=== PATIENT | male | born 1970 | race Caucasian/White ===

== ENCOUNTER → 2016-07-28 | Outpatient (CLI) | payer OTHER ==
--- NOTE | 2016-07-28 14:18 | CR ---
EXAMINATION: Lumbar spine HISTORY: Low back pain COMPARISON: None TECHNIQUE: AP, lateral, flexion and extension images. FINDINGS: The lumbar spinal alignment is normal. The vertebral body heights and disc spaces appear w ell-maintained. There is no fracture or dislocation. Bone mineralization is normal. Minimal marginal osteophytes are noted. The SI joints are symmetric. Position and alignment appear unchanged with fl exion and extension. IMPRESSION: Grossly unremarkable lumbar spine.
== END ==
LOC: MW.CHPM 09:23
PROVIDERS: ATTEND Anesthesiology
DX: M54.5 Low back pain (principal)
CPT/HCPCS: 72110; 72110-26

== ENCOUNTER → 2016-08-25 | Outpatient (CLI) | payer OTHER ==
--- NOTE | 2016-08-28 13:58 | MR ---
EXAM DATE: 08/25/16 PATIENT'S AGE: 45 Patient: ALYSE RIZVI Facility: [place], [place] Site . Site : 1970 Study: MRI Spine Thoracic [id number] 6:57:30 PM Ordering Physician: Una Thakkar Final Report: INDICATION: 45-year-old male. Dorsalgia. Patient describes thoracolumbar pain with bilateral gluteal and posterior right thigh radiation. Technique: T1-T2 and STIR sagittal images with multilevel T2 axial acquisitions. Findings: Mild thoracolumbar scoliosis is convex to the left. There is a benign vertebral body hemangioma at T4. There is no pathologic signal within the spinal cord. C6-7 and C7-T1: Mild spondylosis. No significant central or foraminal stenosis. T1-2: Right central disc osteophyte complex contacts the spinal cord. No significant foraminal narrowing. T T3: Small Schmorl nodes. Minor annular bulge and marginal spurring. No significant central or foraminal. T3-4: Left central disc osteophyte complex indents the spinal cord. Foramina are normally patent. T4-5: Schmorl is nodes and minor annular bulge. No significant central or foraminal narrowing. T5-6: Schmorl nodes. Right central disc osteophyte complex contacts the spinal cord. No significant foraminal narrowing. T6-7: Schmorl is nodes and minor right central marginal disc osteophyte complex without impingement. T7-8: Schmorl is nodes. No significant central or foraminal narrowing. T8-9: Schmorl is nodes. No significant central or foraminal narrowing. T9-10: Schmorl is nodes. Mild right foramina narrowing by uncinate spurring. Central canal left neural foramina adequate patent. T9-10 T10-11, T11-12 and T12-L1: Schmorl nodes. No central or foraminal stenosis. Impression: 1. Multilevel Schmorl nodes and disc spondylosis detailed above without significant foramina. 2. Left central disc osteophyte complex at T3-4 indents the spinal cord. 3. Right central disc osteophyte complex at T5-6 contacts the anterior rootlets and spinal cord without spinal cord impingement. 4. Posterior marginal disc osteophyte complex at other segments detailed above without significant central or foraminal. Dictated by Chadd Mcnamara MD @ Aug 26 2016 12:44PM (Electronic Signature) Report Signed by Proxy. EMMIE
== END ==
LOC: MW.MRI 17:59
PROVIDERS: ATTEND Anesthesiology
DX: M54.9 Dorsalgia, unspecified (principal)
CPT/HCPCS: 72146; 72146-26

== ENCOUNTER 2020-09-03 10:08 | Emergency (ER) | payer OTHER ==
--- NOTE | 2020-09-03 10:46 | EDM.PDOC ---
ED HPI GENERAL MEDICAL PROBLEM - General Chief Complaint: General Stated Complaint: MEDICAL CLEARANCE Time Seen by Provider: 09/03/20 10:20 Source of Information: Reports: Patient History Limitations: Reports: No Limitations - History of Present Illness INITIAL COMMENTS - FREE TEXT/NARRATIVE: HISTORY AND PHYSICAL: History of present illness: Patient is a 49-year-old male who presents emergency room today in law enforcement custody for medical screening for incarceration. Patient states the only complaint he has is low back pain and states that he has a known diagnosis of chronic low back pain with bulging disks in the past. Patient states that he has been following with his primary care provider at the [facility] and last saw them yesterday. Patient states he has no other stated complaints at this time. Patient denies fever, chills, chest pain, shortness of breath, or cough. Denies headache, neck stiff ness, change in vision, syncope, or near syncope. Denies nausea, vomiting, abdominal pain, diarrhea, constipation, or dysuria. Has not noted any blood in urine or stool. Patient has been eating and drinking appropriately. Denies any loss or retention of bowel bladder function or saddle anesthesia. Review of systems: As per history of present illness and below otherwise all systems reviewed and negative. Past medical history: As per history of present illness and as reviewed below otherwise noncontributory. Surgical history: As per history of present illness and as reviewed below otherwise noncontributory. Social history: See social history for further information Family history: As per history of present illness and as reviewed below otherwise noncontributory. Physical exam: General: Patient is alert, oriented, and in no acute distress. Patient sitting comfortably on exam table. Patient's heart rate on triage was noted to be mildly tachycardic of 103 by nursing staff, however, on my exam, his heart rate is 95 bpm. Otherwise vital stable and reviewed by me. HEENT: Atraumatic, normocephalic, pupils equal and reactive bilaterally, negative for conjunctival pallor or scleral icterus, mucous membranes moist, TMs normal bilaterally, throat clear, neck supple, nontender, trachea midline. No drooling or trismus noted. No meningeal signs. No hot potato voice noted. Lungs: Clear to auscultation, breath sounds equal bilaterally, chest nontender. Heart: S1S2, regular rate and rhythm without overt murmur Abdomen: Soft, nondistended, nontender. Negative for masses or hepatosplenomegaly. Negative for costovertebral tenderness. Pelvis: Stable nontender. Genitourinary: Deferred. Rectal: Deferred. Skin: Intact, warm, dry. No lesions or rashes noted. Extremities: No obvious deformity of the complete spine. No step-offs, crepitus, or point tenderness to palpation of the complete spine. Patient does have full range of motion of the complete spine but does have pain with range of motion of the generalized lumbar spine. Patient was able to ambulate in the ED today without difficulty. Heel/toe gait intact. Patellar reflexes intact bilaterally. Straight leg raise intact bilaterally. Otherwise, atraumatic, negative for cords or calf pain. Neurovascular unremarkable. Neuro: Awake, alert, oriented. Cranial nerves II through XII unremarkable. Cerebellum unremarkable. Motor and sensory unremarkable throughout. Exam nonfocal. Notes: Signs and symptoms that were prompt return to the ED thoroughly discussed with patient. Discussed importance for follow-up with a primary care provider. Voices understanding and is agreeable to plan of care. Denies any further questions or concerns at this time. Diagnostics: None Therapeutics: None Prescription: None Impression: Medical screening for incarceration Acute on chronic low back pain Plan: 1. You can alternate ibuprofen and Tylenol as directed for pain and discomfort. 2. Follow-up with a primary care provider as discussed. Return to the ED as needed and as discussed. Definitive disposition and diagnosis as appropriate pending reevaluation and review of above. back Pain Score (Numeric/FACES): 8 - Related Data Allergies Allergy/AdvReac Type Severity Reaction Status Date / Time No Known Allergies Allergy Verified 09/03/20 10:34 Home Meds: Home Meds . [No Known Home Meds] 01/16/18 [History] Past Medical History - Past Health History Medical/Surgical History: Denies Medical/Surgical History Musculoskeletal History: Reports: Back Pain, Chronic - Infectious Disease History Infectious Disease History: Reports: Chicken Pox - Past Surgical History Musculoskeletal Surgical History: Reports: None Social & Family History - Family History Family Medical History: No Pertinent Family History - Tobacco Use Tobacco Use Status *Q: Current Every Day Tobacco User Years of Tobacco use: 15 Packs/Tins Daily: 1 - Caffeine Use Caffeine Use: Reports: Coffee - Recreational Drug Use Recreational Drug Use: Yes Recreational Drug Type: Reports: Methamphetamine Recreational Drug Use Frequency: Socially ED ROS GENERAL - Review of Systems Review Of Systems: Comprehensive ROS is negative, except as noted in HPI. ED EXAM, GENERAL - Physical Exam Exam: See Below (See dictation) Course - Vital Signs Last Recorded V/S: Last Vital Signs Temp 96.5 F L 09/03/20 10:26 Pulse 97 09/03/20 10:46 Resp 17 09/03/20 10:26 BP 147/81 H 09/03/20 10:26 Pulse Ox 95 09/03/20 10:26 Departure - Departure Time of Disposition: 10:46 Disposition: Home, Self-Care 01 Clinical Impression: Medical clearance for incarceration, Acute exacerbation of chronic low back pain - Discharge Information Instructions: Medical Screening Exam Referrals: PCP,None [Primary Care Provider] - Forms: ED Department Discharge Additional Instructions: The following information is given to patients seen in the emergency department who are being discharged to home. This information is to outline your options for follow-up care. We provide all patients seen in our emergency department wi th a follow-up referral. The need for follow-up, as well as the timing and circumstances, are variable depending upon the specifics of your emergency department visit. If you don't have a primary care physician on staff, we will provide you with a referral. We always advise you to contact your personal physician following an emergency department visit to inform them of the circumstance of the visit and for follow-up with them and/or the need for any referrals to a consulting specialist. The emergency department will also refer you to a specialist when appropriate. This referral assures that you have the opportunity for follow-up care with a specialist. All of these measure are taken in an effort to provide you with optimal care, which includes your follow-up. Under all circumstances we always encourage you to contact your private physician who remains a resource for coordinating your care. When calling for follow-up care, please make the office aware that this follow-up is from your recent emergency room visit. If for any reason you are refused follow-up, please contact the [facility] Emergency Department at and asked to speak to the emergency department charge nurse. [facility] [address] [place] [id number] [facility] [address] [place] [phone] 1. You can alternate ibuprofen and Tylenol as directed for pain and discomfort. Follow-up with a primary care provider as discussed. Return to the ED as needed and as discussed. Sepsis Event Note (ED) - Evaluation Sepsis Screening Result: No Definite Risk - Focused Exam Vital Signs: Vital Signs Temp Pulse Resp BP Pulse Ox 09/03/20 10:46 97 09/03/20 10:26 96.5 F L 104 H 17 147/81 H 95
== END 2020-09-03 10:51 | disposition home or self-care (01) ==
LOC: MW.ED 10:08
DX: G89.29 Other chronic pain (principal); M54.5 Low back pain; Z72.0 Tobacco use
CPT/HCPCS: 99283

== ENCOUNTER 2020-11-25 12:06 | Emergency (ER) | payer OTHER ==
--- NOTE | 2020-11-25 15:04 | EDM.PDOC ---
ED HPI GENERAL MEDICAL PROBLEM - General Chief Complaint: General Stated Complaint: MEDICAL CLEARNCE Time Seen by Provider: 11/25/20 13:42 Source of Information: Reports: Patient History Limitations: Reports: No Limitations - History of Present Illness INITIAL COMMENTS - FREE TEXT/NARRATIVE: HISTORY AND PHYSICAL: History of present illness: Patient is a 49-year-old male who presents to the emergency room by law enforcement with complaints of a cough. He states he gets chronic bronchitis. No concern for COVID-19, has been vaccinated. Patient denies any fever, chills, headache, change in vision, syncope or near syncope. Denies any chest pain, back pain, shortness of breath or hemoptysis. Denies any GI or symptoms. Patient has been eating and drinking appropriately. Denies any alcohol or drug abuse. Review of systems: As per history of present illness and below otherwise all systems reviewed and negative. Past medical history: As per history of present illness and as reviewed below otherwise noncontributory. Surgical history: As per history of present illness and as reviewed below otherwise noncontributory. Social history: See social history for further information Family history: As per history of present illness and as reviewed below otherwise noncontributory. Physical exam: General: Well developed and well nourished. Alert and orientated x 3. Answering questions appropriately. Nontoxic in appearance and in no acute distress. Vital signs are stable and have been reviewed by me. Nursing notes were reviewed. Accompanied by law enforcement. HEENT: Atraumatic, normocephalic, pupils equal and reactive bilaterally, negative for conjunctival pallor or scleral icterus, mucous membranes moist, trachea midline. No drooling or trismus noted. No meningeal signs. No hot potato voice noted. Lungs: Clear to auscultation, breath sounds equal bilaterally. Normal work of breathing, no accessory muscles used. Heart: S1S2, regular rate and rhythm without overt murmur Abdomen: Soft, nondistended, nontender. Negative for masses or costovertebral tenderness. Skin: Intact, warm, dry. No lesions or rashes noted. Hematologic: No petechiae or purpra. Mucosa appropriate color and normal nail bed color and refill. Extremities: Ambulatory, moves all extremities per self without difficulty or deficits. Neurovascular unremarkable. Neuro: Awake, alert, oriented. Cranial nerves II through XII unremarkable. Cerebellum unremarkable. Motor and sensory unremarkable throughout. Exam nonfocal. Psychiatric: Mood and affect are appropriate. Normal thought process. Answering questions appropriately. Notes: Law enforcement has no specific concerns for today's ER visit. They declined wanting a COVID-19 swab at this time as he has been vaccinated. Chest x-ray shows hazy and interstitial right mid lung opacities. Differential includes infection/inflammation or edema.I have talked with the patient and military lawyer about today's ER visit, in addition to providing specific details for plan of care. Reassessment at the time of disposition demonstrates that the patient is in no acute distress. The patient is stable for discharge, counseling was provided and we discussed in great detail signs and symptoms that would prompt them to return to the Emergency Department. Medication, follow up and supportive care measures were reviewed and discussed. Voices understanding and is agreeable to plan of care. Denies any further questions or concerns at this time. Diagnostics: Chest x-ray, COVID-19 Therapeutics: None Prescription: Doxycycline Impression: Encounter for medical screening Pneumonia Plan: 1. Today your physical exam and vital signs are within normal limits. Chest x- ray shows evidence of infection, please take the antibiotic as prescribed. 2. We encourage you to follow up with your primary care provider and/or recommended specialist in the next few days for re-evaluation and further care/management. 3. If you should develop symptoms or feel the need to be evaluated in the emergency department - please feel free to return or call 911 if necessary. Definitive disposition and diagnosis as appropriate pending reevaluation and review of above. Bilateral Middle Chest Pain Score (Numeric/FACES): 8 - Related Data Allergies Allergy/AdvReac Type Severity Reaction Status Date / Time No Known Allergies Allergy Verified 09/03/20 10:34 Home Meds: Home Meds Doxycycline [Vibramycin] 100 mg PO BID 7 Days #14 tab 11/25/20 [Rx] Ibuprofen 11/25/20 [History] Past Medical History - Past Health History Medical/Surgical History: Denies Medical/Surgical History Musculoskeletal History: Reports: Back Pain, Chronic - Infectious Disease History Infectious Disease History: Reports: Chicken Pox - Past Surgical History Musculoskeletal Surgical History: Reports: None Social & Family History - Family History Family Medical History: No Pertinent Family History - Caffeine Use Caffeine Use: Reports: Coffee ED ROS GENERAL - Review of Systems Review Of Systems: Comprehensive ROS is negative, except as noted in HPI. ED EXAM, GENERAL - Physical Exam Exam: See Below (See dictation) Course - Vital Signs Last Recorded V/S: Last Vital Signs Temp 97.8 F 11/25/20 14:24 Pulse 104 H 11/25/20 14:24 Resp 18 11/25/20 14:24 BP 143/96 H 11/25/20 14:24 Pulse Ox 95 11/25/20 14:24 - Orders/Labs/Meds Orders: Active Orders 24 hr Category Date Time Status Blood Glucose Check, Bedside [RC] ONETIME Care 11/25/20 12:33 Active Labs: Laboratory Tests 11/25/20 11/25/20 Range/Units 15:40 16:02 POC Glucose 102 H (70-99) mg/dL SARS-CoV-2 RNA (JAMA) NEGATIVE (NEGATIVE) Meds: Medications Discontinued Medications Generic Name Dose Route Start Last Admin Trade Name Freq PRN Reason Stop Dose Admin Doxycycline Hyclate 100 mg 11/25/20 15:29 11/25/20 15:59 Doxycycline 100 Mg Cap PO 11/25/20 15:30 100 mg ONETIME ONE Administration Departure - Departure Time of Disposition: 15:03 Disposition: Home, Self-Care 01 Clinical Impression: Encounter for medical screening examination Pneumonia Qualifiers: Pneumonia type: due to unspecified organism Laterality: right Lung location: middle lobe of lung Qualified Code(s): J18.9 - Pneumonia, unspecified organism - Discharge Information Prescriptions: Doxycycline [Vibramycin] 100 mg PO BID 7 Days #14 tab Instructions: Medical Screening Exam Referrals: PCP,None [Primary Care Provider] - Forms: ED Department Discharge Additional Instructions: The following information is given to patients seen in the emergency department who are being discharged to home. This information is to outline your options for follow-up care. We provide all patients seen in our emergency department with a follow-up referral. The need for follow-up, as well as the timing and circumstances, are variable depending upon the specifics of your emergency department visit. If you don't have a primary care physician on staff, we will provide you with a referral. We always advise you to contact your personal physician following an emergency department visit to inform them of the circumstance of the visit and for follow-up with them and/or the need for any referrals to a consulting specialist. The emergency department will also refer you to a specialist when appropriate. This referral assures that you have the opportunity for follow-up care with a specialist. All of these measure are taken in an effort to provide you with optimal care, which includes your follow-up. Under all circumstances we always encourage you to contact your private physician who remains a resource for coordinating your care. When calling for follow-up care, please make the office aware that this follow-up is from your recent emergency room visit. If for any reason you are refused follow-up, please contact the [facility] Emergency Department at and asked to speak to the emergency department charge nurse. [facility] Primary Care [address] [place] [id number] [facility] [address] [place] [phone] Thank you for choosing the [facility] emergency department in [place] for your medical needs today. It was a pleasure caring for you. Today you were seen in the emergency department for medical screening exam 1. Today your physical exam and vital signs are within normal limits. Chest x- ray shows evidence of infection. Please take the antibiotic as prescribed. 2. We encourage you to follow up with your primary care provider and/or recommended specialist in the next few days for re-evaluation and further care/management. 3. If you should develop symptoms or feel the need to be evaluated in the emergency department - please feel free to return or call 911 if necessary. Sepsis Event Note (ED) - Focused Exam Vital Signs: Vital Signs Temp Pulse Resp BP Pulse Ox 11/25/20 14:24 97.8 F 104 H 18 143/96 H 95 - My Orders Last 24 Hours: My Active Orders 11/25/20 12:33 Blood Glucose Check, Bedside [RC] ONETIME - Assessment/Plan Last 24 Hours: My Active Orders 11/25/20 12:33 Blood Glucose Check, Bedside [RC] ONETIME
[2020-11-25] MEDS ORDERED: Doxycycline 100 MG Cap PO ONE (15:29)
--- NOTE | 2020-11-25 15:35 | CR ---
INDICATION: Pain and shortness of breath. COMPARISON: None. TECHNIQUE: Chest single view. FINDINGS: Cardiac silhouette size is within normal limits. Hazy and interstitial right mid lung opacities. No pleural effusion or pneumothorax. Degenerative changes in the spine. IMPRESSION: Hazy and interstitial right mid lung opacities. Differential includes infection/inflammation or edema. Dictated by Pelon Nice MD @ 11/25/2020 3:34:[address] Pelon Nice @ Nov 25 2020 3:34PM
== END 2020-11-25 17:20 | disposition home or self-care (01) ==
LOC: MW.ED 12:06
DX: J18.9 Pneumonia, unspecified organism (principal); Z20.822 Contact with and (suspected) exposure to COVID-19
CPT/HCPCS: 71045; 82947; 87635; 99284; A9270; U0002